=== PATIENT | female | born 1975 | race Caucasian/White ===

== ENCOUNTER 2022-10-27 14:34 | Emergency (ER) | payer OTHER, SELFPAY ==
[2022-10-27 14:39] VITALS: BP 162/93; PULSE 128; RESP 18; TEMP 36.3; O2SAT 98; BMI 32.8
--- NOTE | 2022-10-27 14:43 | ED_ITS ---
HPI - Anxiety General Time Seen by Provider: 14:43 Date Seen: 10/27/22 Chief Complaint: Anxiety Stated Complaint: Anxiety Time Seen by Provider: 10/27/22 14:43 Source: patient, family and RN notes reviewed Mode of arrival: ambulatory Limitations: no limitations History of Present Illness HPI narrative: Lisa is a very pleasant 47-year-old female with a history of anxiety who comes to the emergency room for evaluation regarding her heart racing and feeling like she has ?butterflies all over. She notes that she has had issues with anxiety in the past and states that she worries about everything. She has really had this however since February of 2022. She states that she really has not been feeling that well and has been experiencing a nonproductive cough for a couple of weeks. She notes that this morning she has been and unusually anxious. She notes that she was worried about her driving to work. She did try hydroxyzine tablet at home and stated that it made her feel sleepy but she still feels anxious. She notes associated nausea but no vomiting. She has did eat today although she has a decreased appetite. She denies any diarrhea tobacco or drug use. She has not been using energy drinks or an excessive caffeine. She denies any possibility of , history of DVT or calf pain. She does note in the past she has been on Synthroid for hypothyroidism but has not been taking that for quite some time. She denies any recent trauma or fever. Patient does note headache approximately 72 hours ago that involved entire head with radiation down right neck into right back. Does not remember if it was sudden in onset. This resolved after 1 day and has not returned. It was not associated with visual changes or significant pain. Patient does note that she gets tension headaches and she felt that this was exactly that. Related Data Home Medications Medication Instructions Recorded Confirmed No Known Home Medications 10/27/22 10/27/22 Allergies Allergy/AdvReac Type Severity Reaction Status Date / Time No Known Drug Allergies Allergy Verified 10/27/22 14:45 Review of Systems Status of ROS: Reports: 10 or more systems reviewed and unremarkable except as noted in History and below Narrative: Denies suicidal ideation. Const: Denies: fever or chills ENMT: Denies: throat pain or neck pain Cardio: Reports: other; Denies: chest pain, palpitations, edema, swelling of feet/ankles, lightheadedness or shortness of breath with exertion Resp: Denies: shortness of breath GI: Reports: nausea; Denies: abdominal pain, vomiting or diarrhea : Denies: painful urination or urinary frequency Musculo: Denies: back pain or neck pain Integ/Breast: Denies: rash Neuro: Denies: headache Psych: Reports: anxiety Endo: Denies: excessive urination PFSH PFSH Social History Smoking Status: Never smoker How often do you have a drink containing alcohol: never AUDIT-C Alcohol total score: 0 Non-prescribed substance use: denies use Exam Narrative: Exam Narrative: Patient is alert and oriented. Very pleasant. Does not appear to be significantly anxious. Making good eye contact laughing and interactive with is very loving and supportive. EOM is full. Face is symmetrical. Neck is supple without lymphadenopathy. No midline tenderness. Range of motion full. Heart with a tachycardic rate but normal rhythm. Lungs are clear in all lung ackerman. Abdomen soft nontender. No CVA tenderness with percussion. Lower extremities without edema and negative Homans sign/no calf tenderness. Finger to nose intact Romberg is negative moving all extremities. Const: Vital Signs, click to edit/add: Vital Signs - 24 hr 10/27/22 14:39 10/27/22 16:45 10/27/22 18:55 Temperature 97.4 F L Pulse Rate [Pulse Oximeter] 128 H 120 H 112 H Respiratory Rate 18 16 16 Blood Pressure [Ri ght Upper Arm] 162/93 H 146/91 H 142/90 H Pulse Oximetry 98 100 99 Oxygen Delivery Me thod Room Air Room Air Room Air Documenting provider has reviewed patient's vital signs: yes Course Course Hospital Course: Differential diagnosis includes but is not limited to a broad review of systems. Certainly underlying thyrotoxicosis, thyroid issues, PE, COVID, UTI, infection are all possibilities. Acute coronary syndrome, pericarditis, myocarditis this. Will obtain EKG, troponin, cardiac monitoring, oximetry as well as CBC, comprehensive panel, CRP, D-dimer, TSH, COVID, urinalysis. Chest x-ray pending as well. Reevaluation(s) Reevaluation #1: Patient remains in sinus tachycardia without any chest pain or shortness of breath. She did receive 1 L of normal saline in 0.5 mg of Ativan. Vital Signs Vital signs: Initial Vital Signs Temperature 97.4 F L 10/27/22 14:39 Temperature Source Temporal Artery Scan 10/27/22 14:39 Pulse Rate 128 H 10/27/22 14:39 Respiratory Rate 18 10/27/22 14:39 Blood Pressure 162/93 H 10/27/22 14:39 Blood Pressure Mean 116 10/27/22 14:39 Blood Pressure Position Supine 10/27/22 14:39 Pulse Oximetry 98 10/27/22 14:39 Oxygen Delivery Method 10/27/22 14:39 Vital Signs Temperature 97.4 F L 10/27/22 14:39 Pulse Rate 128 H 10/27/22 14:39 Respiratory Rate 18 10/27/22 14:39 Blood Pressure 162/93 H 10/27/22 14:39 Pulse Oximetry 98 10/27/22 14:39 Oxygen Delivery Method 10/27/22 14:39 Temperature 97.4 F L 10/27/22 14:39 Pulse Rate 112 H 10/27/22 18:55 Respiratory Rate 16 10/27/22 18:55 Blood Pressure 142/90 H 10/27/22 18:55 Pulse Oximetry 99 10/27/22 18:55 Oxygen Delivery Method 10/27/22 18:55 MDM - Anxiety MDM Narrative Medical decision making narrative: 1. Tachycardia-this appears to be sinus on EKG. Troponin is negative x2 and patient has no chest pain or shortness of breath. This time CRP and white count as well as troponin within normal limits and there is no evidence of pericarditis, myocarditis or fluid around the heart. In addition no evidence of acute coronary syndrome or ischemia. Finally D-dimer was negative and chest x- ray was clear. I did see have the pleasure of speaking with Dr. Adames plaster patternmaker who suggest 2 day Holter monitor which we have applied. Patient will then follow up with a physician in our system. She will return to the emergency room for chest pain shortness of breath or worsening symptoms. 2. Vitamin-D deficiency-patient's vitamin-D is 17 and magnesium relatively low at 1.8. Have asked that she start magnesium glycinate tonight at 2 tablets tonight and 1 tablet in the morning. She will start vitamin-D tomorrow. This should greatly improve her anxiety. 3. Anxiety-history of anxiety without suicidal ideation. 4. Disposition-patient will be discharged home in the care of her . She will follow up with primary clinic. However she will return to the ER for worsening symptoms. Lab Data Attestation: I reviewed the patient's lab results. Labs: Lab Results 10/27/22 10/27/22 10/27/22 Range/Units 15:21 15:30 15:45 WBC 8.03 (4.50-11.00) K/uL RBC 4.65 (4.00-5.20) m/uL Hgb 14.4 (12.0-16.0) gm/dL Hct 42.1 (33.0-51.0) % MCV 91 (80-100) fL MCH 31 (26-34) pg MCHC 34 (32-36) gm/dL RDW Coeff of Emma 11.6 (11.5-15.5) % Plt Count 351 (140-440) K/uL Neut % (Auto) 75.9 H (42.0-72.0) % Lymph % (Auto) 16.4 L (20-44) % Marl[place] % (Auto) 5.9 (0.0-11.0) % Eos % (Auto) 1.2 (0.0-7.0) % Baso % (Auto) 0.4 (0.0-3.0) % Neut # (Auto) 6.10 (1.7-7.0) K/uL Lymph # (Auto) 1.30 (0.90-2.90) K/uL [place] # (Auto) 0.50 (0.00-0.90) K/UL Eos # (Auto) 0.10 (0.00-0.50) K/uL Baso # (Auto) 0.03 (0.00-0.30) K/uL D-Dimer Quant (PE/DVT) (0.00-0.50) ug/ml Sodium (135-149) mmol/L Potassium (3.6-5.1) mmol/L Chloride (96-114) mmol/L Carbon Dioxide (20-32) mmol/L BUN (5-24) mg/dL Creatinine (0.5-1.5) mg/dL Estimated Creat Clear Estimated GFR ml/min Glucose (60-115) mg/dL Calcium (8.4-10.6) mg/dL Magnesium (1.5-2.6) mg/dL Total Bilirubin (0.1-1.5) mg/dL AST (12-35) U/L ALT (4-35) U/L Alkaline Phosphatase (40-150) U/L Troponin I (0.01-0.04) ng/mL C-Reactive Protein (0.5-1.0) mg/dL Total Protein (6.0-8.3) g/dL Albumin (3.3-5.0) g/dL Lipase (23-300) U/L 25-OH Vitamin D Total (30-80) ng/mL TSH (0.270-4.20) uIU/mL Urine Color Yellow (Yellow) Urine Appearance Slightly Cloudy A (Clear) Urine pH 6.0 (5.0-8.5) Ur Specific Christmas 1.010 (1.000-1.030) Urine Protein Negative (Negative) Urine Glucose (UA) Negative (Negative) Urine Ketones Negative (Negative) Urine Blood Negative (Negative) Urine Nitrite Negative (Negative) Urine Bilirubin Negative (Negative) Urine Urobilinogen 0.2 (0.2-1.0) Ur Leukocyte Esterase Trace A (Negative) Urine RBC 0-2 (0-2) Urine WBC 0-2 (0-5) Ur Squamous Epith Cells Few (None-Few) Urine Bacteria None (None) SARS-CoV-2 (PCR) Negative SARS-CoV-2 (Negative) Influenza Type A (PCR) Negative PCR FLU A (Negative) Influenza Type B (PCR) Negative PCR FLU B (Negative) POC Troponin I (0.01-0.04) ng/ml 10/27/22 10/27/22 10/27/22 Range/Units 15:45 15:45 15:45 WBC (4.50-11.00) K/uL RBC (4.00-5.20) m/uL Hgb (12.0-16.0) gm/dL Hct (33.0-51.0) % MCV (80-100) fL MCH (26-34) pg MCHC (32-36) gm/dL RDW Coeff of Emma (11.5-15.5) % Plt Count (140-440) K/uL Neut % (Auto) (42.0-72.0) % Lymph % (Auto) (20-44) % Marlboro % (Auto) (0.0-11.0) % Eos % (Auto) (0.0-7.0) % Baso % (Auto) (0.0-3.0) % Neut # (Auto) (1.7-7.0) K/uL Lymph # (Auto) (0.90-2.90) K/uL [place] # (Auto) (0.00-0.90) K/UL Eos # (Auto) (0.00-0.50) K/uL Baso # (Auto) (0.00-0.30) K/uL D-Dimer Quant (PE/DVT) 0.34 (0.00-0.50) ug/ml Sodium 135 (135-149) mmol/L Potassium 3.8 (3.6-5.1) mmol/L Chloride 99 (96-114) mmol/L Carbon Dioxide 26 (20-32) mmol/L BUN 17 (5-24) mg/dL Creatinine 0.6 (0.5-1.5) mg/dL Estimated Creat Clear 93.82 Estimated GFR 110 ml/min Glucose 114 (60-115) mg/dL Calcium 9.3 (8.4-10.6) mg/dL Magnesium 1.8 (1.5-2.6) mg/dL Total Bilirubin 0.7 (0.1-1.5) mg/dL AST 39 H (12-35) U/L ALT 36 H (4-35) U/L Alkaline Phosphatase 108 (40-150) U/L Troponin I < 0.01 L (0.01-0.04) ng/mL C-Reactive Protein < 0.5 L (0.5-1.0) mg/dL Total Protein 8.5 H (6.0-8.3) g/dL Albumin 5.0 (3.3-5.0) g/dL Lipase 82 (23-300) U/L 25-OH Vitamin D Total (30-80) ng/mL TSH (0.270-4.20) uIU/mL Urine Color (Yellow) Urine Appearance (Clear) Urine pH (5.0-8.5) Ur Specific Christmas (1.000-1.030) Urine Protein (Negative) Urine Glucose (UA) (Negative) Urine Ketones (Negative) Urine Blood (Negative) Urine Nitrite (Negative) Urine Bilirubin (Negative) Urine Urobilinogen (0.2-1.0) Ur Leukocyte Esterase (Negative) Urine RBC (0-2) Urine WBC (0-5) Ur Squamous Epith Cells (None-Few) Urine Bacteria (None) SARS-CoV-2 (PCR) (Negative) Influenza Type A (PCR) (Negative) Influenza Type B (PCR) (Negative) POC Troponin I (0.01-0.04) ng/ml 10/27/22 10/27/22 Range/Units 15:45 18:10 WBC (4.50-11.00) K/uL RBC (4.00-5.20) m/uL Hgb (12.0-16.0) gm/dL Hct (33.0-51.0) % MCV (80-100) fL MCH (26-34) pg MCHC (32-36) gm/dL RDW Coeff of Emma (11.5-15.5) % Plt Count (140-440) K/uL Neut % (Auto) (42.0-72.0) % Lymph % (Auto) (20-44) % Marl[place] % (Auto) (0.0-11.0) % Eos % (Auto) (0.0-7.0) % Baso % (Auto) (0.0-3.0) % Neut # (Auto) (1.7-7.0) K/uL Lymph # (Auto) (0.90-2.90) K/uL [place] # (Auto) (0.00-0.90) K/UL Eos # (Auto) (0.00-0.50) K/uL Baso # (Auto) (0.00-0.30) K/uL D-Dimer Quant (PE/DVT) (0.00-0.50) ug/ml Sodium (135-149) mmol/L Potassium (3.6-5.1) mmol/L Chloride (96-114) mmol/L Carbon Dioxide (20-32) mmol/L BUN (5-24) mg/dL Creatinine (0.5-1.5) mg/dL Estimated Creat Clear Estimated GFR ml/min Glucose (60-115) mg/dL Calcium (8.4-10.6) mg/dL Magnesium (1.5-2.6) mg/dL Total Bilirubin (0.1-1.5) mg/dL AST (12-35) U/L ALT (4-35) U/L Alkaline Phosphatase (40-150) U/L Troponin I (0.01-0.04) ng/mL C-Reactive Protein (0.5-1.0) mg/dL Total Protein (6.0-8.3) g/dL Albumin (3.3-5.0) g/dL Lipase (23-300) U/L 25-OH Vitamin D Total 17 L (30-80) ng/mL TSH 9.500 H (0.270-4.20) uIU/mL Urine Color (Yellow) Urine Appearance (Clear) Urine pH (5.0-8.5) Ur Specific Christmas (1.000-1.030) Urine Protein (Negative) Urine Glucose (UA) (Negative) Urine Ketones (Negative) Urine Blood (Negative) Urine Nitrite (Negative) Urine Bilirubin (Negative) Urine Urobilinogen (0.2-1.0) Ur Leukocyte Esterase (Negative) Urine RBC (0-2) Urine WBC (0-5) Ur Squamous Epith Cells (None-Few) Urine Bacteria (None) SARS-CoV-2 (PCR) (Negative) Influenza Type A (PCR) (Negative) Influenza Type B (PCR) (Negative) POC Troponin I 0.00 L (0.01-0.04) ng/ml Imaging Data Chest x-ray: My impression: No evidence of infiltrates. Radiologist's impression: Negative chest/unremarkable per Radiology ECG Data Attestation: I personally reviewed and interpreted this ECG as follows: ECG interpretation date: 10/27/22 Interpretation: 1. EKG 1. By my read shows sinus tachycardia at a rate of 119. No acute ST or T-wave changes are noted. QT within normal limits Second EKG by my read shows sinus tachycardia rate of 114. No acute ST or T- wave changes noted. Discharge Plan Discharge Clinical Impression: Tachycardia, Acute anxiety, Vitamin D deficiency Patient Disposition: Home, Self-Care Condition: Unchanged Additional Instructions: Recommend 2 day monitor because of elevated heart rate. Follow-up with your primary MD for results. I will not be able to give you these results so you must follow-up with your primary clinic. I recommend starting vitamin-D 400-800 IU daily after starting magnesium. Start magnesium glycinate 2 tablets at night and 1 tablet in morning. Recheck vitamin-D level in the next few months with your primary clinic. Seek medical attention or return to the emergency room for worsening symptoms. Follow-up with on our clinic system. Dr. Sandoval is a physician in [place] [facility]. His phone number is [phone]. Alternatively the [facility] has Dr. Witt or Dr Donis. Phone number [phone] Return to the emergency room for worsening symptoms, pain, fever and as needed. Prescriptions: No Action No Known Home Medications Follow Up/Referrals: Provider,Not a Local [Primary Care Provider] - Stand Alone Forms: [employer] Info Instructions
--- NOTE | 2022-10-27 15:21 | CRLHL7_ITS ---
For Patients: As a result of the Century Cures Act, medical imaging exams and procedure reports are released immediately into your electronic medical record. You may view this report before your referring provider. If you have questions, please contact your health care provider. INDICATION: Cough and tachycardia TECHNIQUE: Chest 1 view. COMPARISON: None. FINDINGS: Cardiovascular and mediastinum: Heart size and vasculature are normal in caliber and appearance. Mediastinum is within normal limits. Lungs and pleural space: Lungs are clear. No sign of infiltrate or mass. No sign of pleural effusion. No pneumothorax. Bones and soft tissues: No significant findings. IMPRESSION: Unremarkable chest. Dictated by: Ammon Kessler MD @ 10/27/2022 16:02:55 (Electronically Signed)
[2022-10-27 15:44] LABS: Appearance Urine Slightly Cloudy (Clear); Bilirubin Urine Negative (Negative); Blood Urine Negative (Negative); Color Urine Yellow (Yellow); Glucose Urine Negative (Negative); Ketones Urine Negative (Negative); Leukocyte Esterase Urine Trace (Negative); Nitrite Urine Negative (Negative); Protein Urine Negative (Negative); Urobilinogen Urine 0.2 (0.2-1.0)
[2022-10-27 15:54] LABS: Basophils Absolute Auto 0.03 K/uL (0.00-0.30); Basophils Percent Auto 0.4 % (0.0-3.0); Eosinophils Percent Auto 1.2 % (0.0-7.0); Hematocrit 42.1 % (33.0-51.0); Hemoglobin* 14.4 gm/dL (12.0-16.0); Immature Granulocytes Abs Auto 0.02 K/uL (0.00-0.30); Immature Granulocytes Pct Auto 0.2 %; Lymphocytes Percent Auto 16.4 % (20-44); Mean Corpuscular HGB Conc 34 gm/dL (32-36); Mean Corpuscular Hemoglobin 31 pg (26-34); Mean Corpuscular Volume 91 fL (80-100); Monocytes Percent Auto 5.9 % (0.0-11.0); Neutrophils Percent Auto 75.9 % (42.0-72.0); Platelet Count* 351 K/uL (140-440); RDW Coefficient of Variation % 11.6 % (11.5-15.5); Red Blood Count 4.65 m/uL (4.00-5.20); White Blood Count* 8.03 K/uL (4.50-11.00)
[2022-10-27 15:56] LABS: Slide Review Reflex No
[2022-10-27 16:12] LABS: RBC Urine 0-2 (0-2); Squamous Epithelial Cell Urine Few (None-Few); WBC Urine 0-2 (0-5)
[2022-10-27 16:15] LABS: Chloride* 99 mmol/L (96-114); Sodium* 135 mmol/L (135-149)
[2022-10-27 16:16] LABS: Potassium* 3.8 mmol/L (3.6-5.1)
[2022-10-27 16:17] LABS: Creatinine* 0.6 mg/dL (0.5-1.5); Est. Creatinine Clearance* 93.82; Estimated Glomerular Filt Rate 110 ml/min
[2022-10-27 16:18] LABS: Alanine Aminotransferase* 36 U/L (4-35); Alkaline Phosphatase* 108 U/L (40-150); Aspartate Amino Transferase* 39 U/L (12-35); Bilirubin Total* 0.7 mg/dL (0.1-1.5); Blood Urea Nitrogen* 17 mg/dL (5-24); Carbon Dioxide* 26 mmol/L (20-32); Glucose* 114 mg/dL (60-115); Lipase* 82 U/L (23-300); Total Protein* 8.5 g/dL (6.0-8.3)
[2022-10-27 16:19] LABS: Calcium* 9.3 mg/dL (8.4-10.6)
[2022-10-27 16:22] LABS: C Reactive Protein* < 0.5 mg/dL (0.5-1.0)
[2022-10-27 16:30] LABS: Troponin I* < 0.01 ng/mL (0.01-0.04)
[2022-10-27 16:39] LABS: Magnesium* 1.8 mg/dL (1.5-2.6)
[2022-10-27 16:40] LABS: PCR FLU A Negative PCR FLU A (Negative); PCR FLU B Negative PCR FLU B (Negative)
[2022-10-27 16:42] LABS: SARS PCR* Negative SARS-CoV-2 (Negative)
[2022-10-27 16:45] VITALS: BP 146/91; PULSE 120; RESP 16; O2SAT 100
[2022-10-27 16:50] LABS: D Dimer Quantitative* 0.34 ug/ml (0.00-0.50)
[2022-10-27] MEDS: 0.9 % SODIUM CHLORIDE 1000 ml 1,000 ML IV (17:20)
[2022-10-27] MEDS: LORazepam 2 MG/ML inj 0.5 MG IVP (17:24)
[2022-10-27 17:28] LABS: Vitamin D 25 Hydroxy* 17 ng/mL (30-80)
--- NOTE | 2022-10-27 18:22 | ED.NURSE ---
pt states, feels 100% better
--- NOTE | 2022-10-27 18:53 | ED.NURSE ---
SL dc'd intact. radiology placing holter monitor
[2022-10-27 18:55] VITALS: BP 142/90; PULSE 112; RESP 16; O2SAT 99
--- NOTE | 2022-10-27 19:00 | ED.NURSE ---
dr. loo doing us at bedside.
== END 2022-10-27 19:52 | disposition home or self-care (01) ==
PROVIDERS: Emergency Provider Family Medicine
DX: R00.0 Tachycardia, unspecified (principal); E55.9 Vitamin D deficiency, unspecified; F41.9 Anxiety disorder, unspecified
CPT/HCPCS: 36415; 71045; 80053; 81001; 82306; 83690; 83735; 84443; 84484; 85025; 85379; 86140; 87631; 93005; 93225; 93226; 96374; 99283; 99284; 99285; J2060; J7030

== ENCOUNTER 2022-10-29 11:16 | Emergency (ER) | payer OTHER, SELFPAY ==
[2022-10-29 11:25] VITALS: BP 178/107; PULSE 113; RESP 18; TEMP 37.3; O2SAT 99; BMI 32.8
--- NOTE | 2022-10-29 11:49 | ED.GENADULT ---
HPI - General Adult General Chief complaint: Arrhythmia/Palpitations Stated complaint: Possible anxiety, elevated heartrate Time Seen by Provider: 10/29/22 11:27 History of Present Illness HPI narrative: Pt is a 47 year old woman who had a thorough work up several days ago here in the ED who presents stating that she cant take the anxiety anymore and needs help. Pts previous workup was unremarkable with the exception of a low Vitamin D and an elevated TSH. Pt was started on vitamin d and asked to follow up with primary care. Pt also is nearing the completion of a 48 dean holter monitor. Pt overall has felt reasonably well during the time since she was last seen but this morning awoke with the impending sense of doom. Pt presents to the ED with extreme tearfulness and anxiety. No fevers, chills, chest pain or shortness of breath. Pt is mildly tachycardic which improves over the time of assessment. No other new symptoms. Related Data Previous Rx's Medication Instructions Recorded levothyroxine 25 mcg tablet 25 mcg PO DAILY Hypothyroidism #90 10/29/22 (Synthroid) tabs Allergies Allergy/AdvReac Type Severity Reaction Status Date / Time No Known Drug Allergies Allergy Verified 10/27/22 14:45 Review of Systems Status of ROS: Reports: 10 or more systems reviewed and unremarkable except as noted in History and below [facility] Medical History (Updated 10/29/22 @ 12:02 by Gerald Witt MD) Hypothyroidism Social History Smoking Status: Never smoker How often do you have a drink containing alcohol: never AUDIT-C Alcohol total score: 0 Non-prescribed substance use: denies use Exam Narrative: Exam Narrative: EXAM GENERAL: Patient appears comfortable and well. EYES: No scleral icterus. THYROID: no thyroid nodules or thyromegaly. LYMPH: No supraclavicular or cervical lymphadenopathy. SKIN: Visible skin seen during exam normal or with benign process only. EXT: No dependent lower extremity pedal edema. HEART: Regular rate and rhythm with no murmurs, rubs, or gallops. Mildly tachycardic. LUNGS: Clear to auscultation bilaterally with no crackles or wheezes. ABD: Soft, non tender, non distended. PSYCH: Good eye contact, speech is not pressured. Const: Vital Signs, click to edit/add: Vital Signs - 24 hr 10/29/22 11:25 Temperature 99.2 F Pulse Rate [Right Pulse Oximeter] 113 H Respiratory Rate 18 Blood Pressure [Ri ght Upper Arm] 178/107 H Pulse Oximetry 99 Oxygen Delivery Me thod Room Air Course Course Hospital Course: Previous evaluation reviewed. Pt seen and examined. Vital Signs Vital signs: Initial Vital Signs Temperature 99.2 F 10/29/22 11:25 Temperature Source Temporal Artery Scan 10/29/22 11:25 Pulse Rate 113 H 10/29/22 11:25 Respiratory Rate 18 10/29/22 11:25 Blood Pressure 178/107 H 10/29/22 11:25 Blood Pressure Mean 130 10/29/22 11:25 Blood Pressure Position Sitting 10/29/22 11:25 Pulse Oximetry 99 10/29/22 11:25 Oxygen Delivery Method 10/29/22 11:25 Vital Signs Temperature 99.2 F 10/29/22 11:25 Pulse Rate 113 H 10/29/22 11:25 Respiratory Rate 18 10/29/22 11:25 Blood Pressure 178/107 H 10/29/22 11:25 Pulse Oximetry 99 10/29/22 11:25 Oxygen Delivery Method 10/29/22 11:25 Temperature 99.2 F 10/29/22 11:25 Pulse Rate 113 H 10/29/22 11:25 Respiratory Rate 18 10/29/22 11:25 Blood Pressure 178/107 H 10/29/22 11:25 Pulse Oximetry 99 10/29/22 11:25 Oxygen Delivery Method 10/29/22 11:25 Medical Decision Making [facility] Narrative Medical decision making narrative: Pt with a thorough evaluation several days ago presents with worsening anxiety and an impending sense of doom. Pt was placed on Vitamin D. Pt does not have a primary provider. Pt will be started on Synthroid at 25 micrograms daily as well as a very limited amount of ativan to be used prn. She will then follow up with me next week in my clinic. Differential Diagnosis Differential Diagnosis: Palpitations, Anxiety, Tachycardia, Hypothyroidism, Vitamind D deficiency, Discharge Plan Discharge Clinical Impression: Palpitations Patient Disposition: Home, Self-Care Condition: Stable Instructions: Heart Palpitations (ED) Additional Instructions: Ativan as directed Synthroid as directed Follow with [facility] next week. Continue Magnesium and Vitamin D Activity Level: No Restrictions Discharge Diet: Regular Prescriptions: New levothyroxine [Synthroid] 25 mcg tablet 25 mcg PO DAILY Qty: 90 2RF Follow Up/Referrals: Provider,Not a Local [Primary Care Provider] - Stand Alone Forms: [employer] Info Instructions
[2022-10-29 12:02] VITALS: BP 150/96; PULSE 88; RESP 16; O2SAT 97
--- NOTE | 2022-10-29 12:13 | PC.NURSE ---
Patient was discharged from ER. Phone number for Dr. Witt's clinic given to patient to call and make an appointment for next week. Prescriptions for Ativan and Synthroid provided to patient. All questions answered. Left via ambulatory.
== END 2022-10-29 12:14 | disposition home or self-care (01) ==
PROVIDERS: Emergency Provider Internal Medicine
DX: R00.2 Palpitations (principal)
CPT/HCPCS: 99283

== ENCOUNTER 2023-01-29 23:23 | Emergency (ER) | payer OTHER, SELFPAY ==
[2023-01-29 23:29] VITALS: BP 164/101; PULSE 119; RESP 16; TEMP 36.7; O2SAT 98; BMI 35.4
--- NOTE | 2023-01-29 23:42 | CRLHL7_ITS ---
For Patients: As a result of the Cures Act, medical imaging exams and procedure reports are released immediately into your electronic medical record. You may view this report before your referring provider. If you have questions, please contact your health care provider. INDICATION: Shortness of breath. CHEST, ONE VIEW An AP radiograph of the chest was performed. Comparison: 10/27/2022. The lungs appear clear and no pleural effusions are identified. The cardiomediastinal silhouette and pulmonary vasculature appear normal, as do the visualized bones. IMPRESSION: No acute intrathoracic abnormality identified. DAVID CHAWLA MD [employer] Dictated by: Logan Chawla MD @ 01/30/2023 00:39:38 (Electronically Signed)
--- NOTE | 2023-01-29 23:47 | ED_ITS ---
HPI - SOB/Dyspnea General Chief Complaint: Shortness of Breath/Dyspnea Stated Complaint: Shortness of Breath Time Seen by Provider: 01/29/23 23:27 History of Present Illness HPI Narrative: Patient is a 47-year-old woman who presents several hours after arriving back from a trip to [place] with shortness of breath. Patient states that she feels like he is having hard time getting her oxygen level up although she is 98% on room air. She has no chest pain no orthopnea no PND. Shortness of breath is worse with activity. Patient has no underlying history of asthma. She has had no symptoms of a respiratory infection. No nausea no vomiting no weakness no bleeding. She has had no bruising no headaches no change in her vision or hearing. She has no lower extremity swelling. Related Data Previous Rx's Medication Instructions Recorded levothyroxine 25 mcg tablet 25 mcg PO DAILY #90 tabs 12/17/22 (Synthroid) Allergies Allergy/AdvReac Type Severity Reaction Status Date / Time No Known Drug Allergies Allergy Verified 11/03/22 15:39 Review of Systems Status of ROS: Reports: 10 or more systems reviewed and unremarkable except as noted in History and below [facility] Medical History Hypothyroidism ?E03.9 - Hypothyroidism, unspecified (ICD-10) Social History Smoking Status: Never smoker Second hand tobacco smoke exposure: No How often do you have a drink containing alcohol: never How often do you have six or more drinks on one occasion: Never AUDIT-C Alcohol total score: 0 Non-prescribed substance use: denies use Exam Narrative: Exam Narrative: EXAM GENERAL: Patient appears comfortable and well. EYES: No scleral icterus. THYROID: no thyroid nodules or thyromegaly. LYMPH: No supraclavicular or cervical lymphadenopathy. SKIN: Visible skin seen during exam normal or with benign process only. EXT: No dependent lower extremity pedal edema. HEART: Regular rate and rhythm with no murmurs, rubs, or gallops. LUNGS: Clear to auscultation bilaterally with no crackles or wheezes. ABD: Soft, non tender, non distended. PSYCH: Good eye contact, speech is not pressured. Const: Vital Signs, click to edit/add: Vital Signs - 24 hr 01/29/23 23:29 01/30/23 00:43 Temperature 98.1 F Pulse Rate [Pulse Oximeter] 119 H 111 H Respiratory Rate 16 16 Blood Pressure [Le ft Upper Arm] 164/101 H Pulse Oximetry 98 97 Oxygen Delivery Me thod Room Air Room Air Course Course Hospital Course: Patient seen examined D-dimer troponin EKG chest x-ray CBC basic metabolic panel ordered. Vital Signs Vital signs: Initial Vital Signs Temperature 98.1 F 01/29/23 23:29 Temperature Source Temporal Artery Scan 01/29/23 23:29 Pulse Rate 119 H 01/29/23 23:29 Pulse Rhythm Regular 01/29/23 23:29 Respiratory Rate 16 01/29/23 23:29 Blood Pressure 164/101 H 01/29/23 23:29 Blood Pressure Mean 122 01/29/23 23:29 Pulse Oximetry 98 01/29/23 23:29 Oxygen Delivery Method Room Air 01/29/23 23:29 Vital Signs Temperature 98.1 F 01/29/23 23:29 Pulse Rate 119 H 01/29/23 23:29 Respiratory Rate 16 01/29/23 23:29 Blood Pressure 164/101 H 01/29/23 23:29 Pulse Oximetry 98 01/29/23 23:29 Oxygen Delivery Method Room Air 01/29/23 23:29 Temperature 98.1 F 01/29/23 23:29 Pulse Rate 111 H 01/30/23 00:43 Respiratory Rate 16 01/30/23 00:43 Blood Pressure 164/101 H 01/29/23 23:29 Pulse Oximetry 97 01/30/23 00:43 Oxygen Delivery Method Room Air 01/30/23 00:43 MDM - SOB/Dyspnea MDM Narrative Medical decision making narrative: Patient's workup is unremarkable with a negative D-dimer negative chest x-ray negative troponin EKG shows sinus tachycardia likely due to anxiety. CBC basic metabolic panel normal. Vital signs normal other than mild tachycardia and hypertension. Reassurance is offered oxygen saturation is 98% on room air p atient sees me in the clinic will follow-up with me on a p.r.n. basis. Differential Diagnosis Differential diagnosis: Likely acute exacerbation of chronic obstructive airways disease, congestive heart failure, community acquired pneumonia, asthma with exacerbation and pulmonary embolism Lab Data Labs: Lab Results 01/29/23 Range/Units 23:59 WBC 7.74 (4.50-11.00) K/uL RBC 4.12 (4.00-5.20) m/uL Hgb 12.9 (12.0-16.0) gm/dL Hct 37.8 (33.0-51.0) % MCV 92 (80-100) fL MCH 31 (26-34) pg MCHC 34 (32-36) gm/dL RDW Coeff of Emma 11.8 (11.5-15.5) % Plt Count 275 (140-440) K/uL Neut % (Auto) 71.1 (42.0-72.0) % Lymph % (Auto) 18.5 L (20-44) % [place] % (Auto) 5.8 (0.0-11.0) % Eos % (Auto) 3.7 (0.0-7.0) % Baso % (Auto) 0.3 (0.0-3.0) % Neut # (Auto) 5.50 (1.7-7.0) K/uL Lymph # (Auto) 1.40 (0.90-2.90) K/uL [place] # (Auto) 0.40 (0.00-0.90) K/UL Eos # (Auto) 0.29 (0.00-0.50) K/uL Baso # (Auto) 0.02 (0.00-0.30) K/uL D-Dimer Quant (PE/DVT) 0.36 (0.00-0.50) ug/ml Sodium 136 (135-149) mmol/L Potassium 4.2 (3.6-5.1) mmol/L Chloride 102 (96-114) mmol/L Carbon Dioxide 29 (20-32) mmol/L BUN 13 (5-24) mg/dL Creatinine 0.6 (0.5-1.5) mg/dL Estimated Creat Clear 93.82 Estimated GFR 110 ml/min Glucose 114 (60-115) mg/dL Calcium 9.6 (8.4-10.6) mg/dL Troponin I < 0.01 L (0.01-0.04) ng/mL Discharge Plan Discharge Clinical Impression: Shortness of breath Patient Disposition: Home, Self-Care Condition: Stable Instructions: Shortness of Breath (ED) Additional Instructions: Activity as tolerated Follow-up in the office as needed. Monitor for change in symptoms. Activity Level: No Restrictions Discharge Diet: Regular Prescriptions: No Action levothyroxine [Synthroid] 25 mcg tablet 25 mcg PO DAILY Qty: 90 2RF Follow Up/Referrals: Provider,Not a Local [Referring] - Stand Alone Forms: [employer] Info Instructions
[2023-01-30 00:12] LABS: Basophils Absolute Auto 0.02 K/uL (0.00-0.30); Basophils Percent Auto 0.3 % (0.0-3.0); Eosinophils Absolute Auto 0.29 K/uL (0.00-0.50); Eosinophils Percent Auto 3.7 % (0.0-7.0); Hematocrit 37.8 % (33.0-51.0); Hemoglobin* 12.9 gm/dL (12.0-16.0); Immature Granulocytes Abs Auto 0.05 K/uL (0.00-0.30); Immature Granulocytes Pct Auto 0.6 %; Lymphocytes Percent Auto 18.5 % (20-44); Mean Corpuscular HGB Conc 34 gm/dL (32-36); Mean Corpuscular Hemoglobin 31 pg (26-34); Mean Corpuscular Volume 92 fL (80-100); Monocytes Percent Auto 5.8 % (0.0-11.0); Neutrophils Percent Auto 71.1 % (42.0-72.0); Platelet Count* 275 K/uL (140-440); RDW Coefficient of Variation % 11.8 % (11.5-15.5); Red Blood Count 4.12 m/uL (4.00-5.20); White Blood Count* 7.74 K/uL (4.50-11.00)
[2023-01-30 00:14] LABS: Slide Review Reflex No
[2023-01-30 00:20] LABS: Chloride* 102 mmol/L (96-114); Potassium* 4.2 mmol/L (3.6-5.1); Sodium* 136 mmol/L (135-149)
[2023-01-30 00:23] LABS: Blood Urea Nitrogen* 13 mg/dL (5-24); Carbon Dioxide* 29 mmol/L (20-32); Creatinine* 0.6 mg/dL (0.5-1.5); Est. Creatinine Clearance* 93.82; Estimated Glomerular Filt Rate 110 ml/min; Glucose* 114 mg/dL (60-115)
[2023-01-30 00:24] LABS: Calcium* 9.6 mg/dL (8.4-10.6)
[2023-01-30 00:26] LABS: D Dimer Quantitative* 0.36 ug/ml (0.00-0.50)
[2023-01-30 00:37] LABS: Troponin I* < 0.01 ng/mL (0.01-0.04)
[2023-01-30 00:43] VITALS: PULSE 111; RESP 16; O2SAT 97
[2023-01-30 01:11] VITALS: BP 168/99; PULSE 109; RESP 16
== END 2023-01-30 01:12 | disposition home or self-care (01) ==
PROVIDERS: Emergency Provider Internal Medicine; PCP Internal Medicine
DX: R06.02 Shortness of breath (principal)
CPT/HCPCS: 36415; 71045; 80048; 84484; 85025; 85379; 93005; 99283; 99284

== ENCOUNTER 2023-04-05 13:27 | Outpatient (CLI) | payer OTHER, SELFPAY | END 2023-04-05 13:28 | disposition home or self-care (01) | LOC: NFLDREF 04-07 06:30 | PROVIDERS: PCP Internal Medicine; Referring Provider Internal Medicine; Visit Provider Internal Medicine | DX: E03.9 Hypothyroidism, unspecified (principal); Z13.6 Encounter for screening for cardiovascular disorders | CPT/HCPCS: 80053; 80061; 84439; 84443 ==

== ENCOUNTER 2023-08-11 08:10 | Outpatient (CLI) | payer OTHER, SELFPAY | END 2023-08-11 08:11 | disposition home or self-care (01) | LOC: NFLDREF 08:10 | PROVIDERS: PCP Internal Medicine; Visit Provider Internal Medicine | DX: E03.9 Hypothyroidism, unspecified (principal) | CPT/HCPCS: 84439; 84443 ==

== ENCOUNTER 2023-10-17 14:18 | Emergency (ER) | payer OTHER, SELFPAY ==
[2023-10-17] VITALS (7 sets, daily range): BP systolic 137–167; BP diastolic 87–112; PULSE 110–121; RESP 16; TEMP 36.8; O2SAT 94–99; BMI 38.1
--- NOTE | 2023-10-17 14:54 | CRLHL7_ITS ---
For Patients: As a result of the Century Cures Act, medical imaging exams and procedure reports are released immediately into your electronic medical record. You may view this report before your referring provider. If you have questions, please contact your health care provider. INDICATION: Shortness of breath. TECHNIQUE: Portable AP chest. COMPARISON: 01/30/2023. FINDINGS: Lungs are clear. Normal heart size and pulmonary vascularity. No pleural effusion. No pneumothorax. IMPRESSION: Normal chest. Dictated by Ja Gallagher MD @ 10/17/2023 3:53:39 PM (Electronically Signed)
--- NOTE | 2023-10-17 14:54 | ED_ITS ---
HPI - General Adult General Time Seen by Provider: 14:54 Date Seen: 10/17/23 Chief complaint: Shortness of Breath/Dyspnea Stated complaint: Heartburn, short of breath Time Seen by Provider: 10/17/23 14:31 Source: patient, RN notes reviewed and old records reviewed Mode of arrival: ambulatory Limitations: no limitations History of Present Illness HPI narrative: Patient is a very pleasant 48-year-old female with history of hypothyroidism who comes to the emergency room with complaints of heartburn. Patient notes the onset at approximately 0900 hours of discomfort or burning in her chest. She notes that she did have some burping which seemed to help a little bit. She states that she went on [employer] and after that basically had a panic attack because it scared her. Patient states she is otherwise a healthy individual and denies any other medical problems. She does not smoke. She notes no excessive use of caffeine or any stimulants. She notes that she has had cholesterol tests in the past and she does not know what the results were but she thinks that they were normal. She is not currently on any antihypertensives or cholesterol medications. She does note that since June she has had cold-like symptoms. She finished an antibiotic approximately 10 days ago for an ear infection. She has never had blood clots in her lungs she has been active and she denies any calf tenderness or swelling. In regards to her discomfort she states I think this is indigestion. She did not try any Tums at home. She does think that yogurt helped when she was eating. Patient states that her father had an [place] but was in [place] and exposed to Agent [place]. Her mother in 2015 of a triple a. She was never told to follow up for an ultrasound or any other evaluation after her mom's diagnosis. Patient denies shortness of breath. Denies abdominal pain. She has no gallbladder. Denies fever or chills. Related Data Previous Rx's Medication Instructions Recorded levothyroxine 25 mcg tablet 25 mcg PO DAILY #90 tabs 12/17/22 (Synthroid) levothyroxine 50 mcg tablet 50 mcg PO QDAY Hypothyroidism #90 04/13/23 (Synthroid) tabs Allergies Allergy/AdvReac Type Severity Reaction Status Date / Time peanut AdvReac Intermediate hives Uncoded 04/13/23 14:19 Review of Systems Status of ROS: Reports: 10 or more systems reviewed and unremarkable except as noted in History and below Const: Denies: fever or chills Eyes: Denies: change in vision ENMT: Denies: throat pain, neck pain, throat swelling, difficulty swallowing, hoarseness or nasal congestion Cardio: Reports: chest pain (Describes a burning); Denies: palpitations, edema, swelling of feet/ankles, lightheadedness or shortness of breath with exertion Resp: Denies: shortness of breath, cough or wheezing GI: Denies: abdominal pain, nausea, vomiting, diarrhea or difficulty swallowing : Denies: painful urination or urinary frequency Musculo: Denies: neck pain Integ/Breast: Denies: rash Neuro: Denies: headache, numbness in extremities or weakness in extremities Psych: Reports: anxiety and panic attacks Allergy/Immuno: Denies: throat swelling or wheezing PFSH REPLACED BY [facility] Medical History Hypothyroidism ?E03.9 - Hypothyroidism, unspecified (ICD-10) Social History Smoking Status: Never smoker Second hand tobacco smoke exposure: No How often do you have a drink containing alcohol: never How often do you have six or more drinks on one occasion: Never AUDIT-C Alcohol total score: 0 Non-prescribed substance use: denies use Little interest or pleasure in doing things: not at all Feeling down, depressed, or hopeless: not at all Exam Narrative: Exam Narrative: Patient is alert and oriented. Somewhat anxious. Very pleasant. External ears eyes nose clear. Heart with a tachycardic rate consistently in the 120s. Lungs are clear bilaterally. Abdomen is soft nontender. No pulsating mass. Lower extremities without edema. No calf tenderness negative Homans sign. Const: Vital Signs, click to edit/add: Vital Signs - 24 hr 10/17/23 14:22 Temperature 98.3 F Pulse Rate [Right Pulse Oximeter] 121 H Respiratory Rate 16 Blood Pressure [Ri ght Upper Arm] 154/112 H Pulse Oximetry 99 Oxygen Delivery Me thod Room Air Documenting provider has reviewed patient's vital signs: yes Course Course ED Course: Differential diagnosis includes stimulant use, SVT, atrial fibrillation or other arrhythmia, hyperthyroidism, low magnesium/electrolyte abnormality. Patient denies any excess take of her levothyroxine which is 50 mcg daily according to patient. Will place IV. Will check CBC, comprehensive panel, troponin, magnesium, EKG and D-dimer. Chest x-ray at this time. Reevaluation(s) Reevaluation #1: Chest x-ray is reassuring as are all of her laboratory values. A trial of Lopressor 2.5 mg slow heart rate down to 107 but heart rate is now spit up once again. Unfortunately at age 48 we cannot rule out possibility of underlying PE. Patient does note Benadryl use in the evenings but this is not been excessive. She has not taken any cough medications, excess caffeine nor any extra doses of her Synthroid. At this time I have spoken to her about the CT for PE rule out and that is currently pending. Reevaluation #2: Patient notes that she is feeling improved. Blood pressures improved to 1 30s over 90s. She notes that she has been under significant stress as her has been just diagnosed with a positive stress test and he is due to follow-up with Cardiology. TSH is slightly elevated. Vital Signs Vital signs: Initial Vital Signs Temperature 98.3 F 10/17/23 14:22 Temperature Source Temporal Artery Scan 10/17/23 14:22 Pulse Rate 121 H 10/17/23 14:22 Pulse Rhythm Regular 10/17/23 14:22 Respiratory Rate 16 10/17/23 14:22 Blood Pressure 154/112 H 10/17/23 14:22 Blood Pressure Mean 126 H 10/17/23 14:22 Blood Pressure Position Sitting 10/17/23 14:22 Pulse Oximetry 99 10/17/23 14:22 Oxygen Delivery Method Room Air 10/17/23 14:22 Vital Signs Temperature 98.3 F 10/17/23 14:22 Pulse Rate 121 H 10/17/23 14:22 Respiratory Rate 16 10/17/23 14:22 Blood Pressure 154/112 H 10/17/23 14:22 Pulse Oximetry 99 10/17/23 14:22 Oxygen Delivery Method Room Air 10/17/23 14:22 Temperature 98.3 F 10/17/23 14:22 Pulse Rate 121 H 10/17/23 14:22 Respiratory Rate 16 10/17/23 14:22 Blood Pressure 154/112 H 10/17/23 14:22 Pulse Oximetry 99 10/17/23 14:22 Oxygen Delivery Method Room Air 10/17/23 14:22 Medications Administered Medications: Discontinued Medications Generic Name Dose Route Start Last Admin Trade Name Thao PRN Reason Stop Dose Admin Adenosine 6 mg 10/17/23 15:57 10/17/23 18:02 Adenosine 6 Mg/2ml Inj IVP 10/17/23 15:58 Not Given ONCE ONE Calcium Carbonate 500 mg 10/17/23 14:54 10/17/23 15:34 Calcium Carbonate 500 Mg Chew PO 10/17/23 14:55 500 mg ONCE ONE Administration Sodium Chloride 1,000 mls @ 1,000 mls/hr 10/17/23 15:48 10/17/23 16:14 0.9 % Sodium Chloride 1000 Ml IV 10/17/23 16:47 1,000 mls/hr .Q1H ANIYA Administration Metoprolol Tartrate 5 mg 10/17/23 16:05 10/17/23 16:14 Metoprolol Tartrate 1 Mg/Ml Inj IVP 10/17/23 16:06 2.5 mg ONCE ONE Administration Metoprolol Tartrate 5 mg 10/17/23 16:57 10/17/23 18:02 Metoprolol Tartrate 1 Mg/Ml Inj IVP 10/17/23 16:58 Not Given ONCE ONE Omeprazole 20 mg 10/17/23 14:54 10/17/23 15:34 Omeprazole [address] PO 10/17/23 14:55 20 mg ONCE ONE Administration Medical Decision Making MDM Narrative Medical decision making narrative: 1. Sinus tachycardia-at this time there is no evidence of underlying acute coronary disease, pericarditis, myocarditis, hyperthyroidism, excessive stimulant use, viral illness or dehydration. I had the pleasure of speaking to [facility] this evening. At this time they do suggest echocardiogram, prolonged cardiac monitoring with Holter or alternative, as well as cardiac consult. At this time they advised against metoprolol or other medication. I did talk to a me in regards to this and she will be going home as long as the 2nd troponin is negative. 2. Disposition -home at this time. Lisa spoke to me about her increased stressors and that she cannot stop thinking about her 's potential health issues. She does have Ativan and hydroxyzine at home. She may use Ativan 0.5 mg 1-2 tablets every 8 hours as needed. I have also talked to her about breathing exercises. She tells me that she actually is feeling much better and is much more relaxed. I have not been able to explain her tachycardia. Again, she tells me that she always has an elevated heart rate but she does not remember it being quite this high. It does appear to be a sinus tachycardia. Will allow her to go home per Cardiology recommendations. Have asked her to avoid all stimulants, Benadryl and antihistamines as well as any activity that greatly increases heart rate. Return to the emergency room as needed. Medical Records Medical records reviewed: Yes I reviewed the patient's medical records Lab Data Lab results reviewed: Yes I reviewed the patient's lab results Labs: Lab Results 10/17/23 10/17/23 10/17/23 Range/Units 14:54 15:10 15:25 WBC 6.87 (4.50-11.00) K/uL RBC 4.22 (4.00-5.20) m/uL Hgb 13.0 (12.0-16.0) gm/dL Hct 38.0 (33.0-51.0) % MCV 90 (80-100) fL MCH 31 (26-34) pg MCHC 34 (32-36) gm/dL RDW Coeff of Emma 11.5 (11.5-15.5) % Plt Count 300 (140-440) K/uL Neut % (Auto) 71.7 (42.0-72.0) % Lymph % (Auto) 18.8 L (20-44) % [place] % (Auto) 6.4 (0.0-11.0) % Eos % (Auto) 1.5 (0.0-7.0) % Baso % (Auto) 0.7 (0.0-3.0) % Neut # (Auto) 4.93 (1.7-7.0) K/uL Lymph # (Auto) 1.30 (0.90-2.90) K/uL [place] # (Auto) 0.40 (0.00-0.90) K/UL Eos # (Auto) 0.10 (0.00-0.50) K/uL Baso # (Auto) 0.05 (0.00-0.30) K/uL Abs Immat Gran (auto) 0.06 (0.00-0.30) K/uL Imm/Tot Granulo (auto) 0.9 % D-Dimer Quant (PE/DVT) 0.27 (0.00-0.50) ug/ml Sodium 133 L (135-149) mmol/L Potassium 3.8 (3.6-5.1) mmol/L Chloride 99 (96-114) mmol/L Carbon Dioxide 24 (20-32) mmol/L Anion Gap 10 (7-15) mEq/L BUN 16 (7-30) mg/dL Creatinine 0.7 (0.5-1.5) mg/dL Estimated Creat Clear 79.54 Estimated GFR 105 ml/min Glucose 103 (60-115) mg/dL Calcium 9.5 (8.4-10.6) mg/dL Magnesium 1.8 (1.5-2.6) mg/dL Total Bilirubin 0.5 (0.1-1.5) mg/dL AST 28 (12-35) U/L ALT 26 (4-35) U/L Alkaline Phosphatase 90 (40-150) U/L C-Reactive Protein 0.5 (0.5-1.0) mg/dL Total Protein 7.8 (6.0-8.3) g/dL Albumin 4.6 (3.3-5.0) g/dL TSH 5.240 H (0.270-4.20) uIU/mL SARS-CoV-2 (PCR) Negative SARS-CoV-2 (Negative) Influenza Type A (PCR) Negative PCR FLU A (Negative) Influenza Type B (PCR) Negative PCR FLU B (Negative) RSV (PCR) Negative PCR RSV (Negative) Lab Acknowledgement POC Troponin I 0.00 L (0.01-0.04) ng/ml 10/17/23 10/17/23 Range/Units 15:48 17:30 WBC (4.50-11.00) K/uL RBC (4.00-5.20) m/uL Hgb (12.0-16.0) gm/dL Hct (33.0-51.0) % MCV (80-100) fL MCH (26-34) pg MCHC (32-36) gm/dL RDW Coeff of Emma (11.5-15.5) % Plt Count (140-440) K/uL Neut % (Auto) (42.0-72.0) % Lymph % (Auto) (20-44) % [place] % (Auto) (0.0-11.0) % Eos % (Auto) (0.0-7.0) % Baso % (Auto) (0.0-3.0) % Neut # (Auto) (1.7-7.0) K/uL Lymph # (Auto) (0.90-2.90) K/uL [place] # (Auto) (0.00-0.90) K/UL Eos # (Auto) (0.00-0.50) K/uL Baso # (Auto) (0.00-0.30) K/uL Abs Immat Gran (auto) (0.00-0.30) K/uL Imm/Tot Granulo (auto) % D-Dimer Quant (PE/DVT) (0.00-0.50) ug/ml Sodium (135-149) mmol/L Potassium (3.6-5.1) mmol/L Chloride (96-114) mmol/L Carbon Dioxide (20-32) mmol/L Anion Gap (7-15) mEq/L BUN (7-30) mg/dL Creatinine (0.5-1.5) mg/dL Estimated Creat Clear Estimated GFR ml/min Glucose (60-115) mg/dL Calcium (8.4-10.6) mg/dL Magnesium (1.5-2.6) mg/dL Total Bilirubin (0.1-1.5) mg/dL AST (12-35) U/L ALT (4-35) U/L Alkaline Phosphatase (40-150) U/L C-Reactive Protein (0.5-1.0) mg/dL Total Protein (6.0-8.3) g/dL Albumin (3.3-5.0) g/dL TSH (0.270-4.20) uIU/mL SARS-CoV-2 (PCR) (Negative) Influenza Type A (PCR) (Negative) Influenza Type B (PCR) (Negative) RSV (PCR) (Negative) Lab Acknowledgement Test Added Test Added POC Troponin I (0.01-0.04) ng/ml Imaging Data Chest x-ray: Attestation: I have reviewed the pertinent imaging results. My impression: No aunt abnormalities noted by my read Radiologist's impression: Lungs are clear. Normal heart size and pulmonary vascularity. No pleural effusion. No pneumothorax. IMPRESSION: Normal chest. CT scan - chest: Attestation: I have reviewed the pertinent imaging results. My impression: I do not note any evidence of P Radiologist's impression: Motion degraded examination. Streak artifact from the dense opacified SVC limits evaluation of the adjacent structures. Lower neck: Visualized thyroid is unremarkable. Cardiovascular: Contrast opacification of the pulmonary arterial tree is adequate. Thoracic aorta is normal in caliber. Pulmonary artery is normal in caliber. No pulmonary embolus. No significant atherosclerotic calcifications. Heart size is normal. No right heart strain. No significant coronary arterial calcifications. Lungs: Linear bandlike opacifications of the lung bases likely due to subsegmental atelectasis and/or scarring. No focal consolidation Airways: Patent. Pleura: No pleural effusions or pneumothorax. Lymph nodes: No mediastinal, hilar, or axillary adenopathy. Chest wall: Normal. Upper abdomen: Cholecystectomy. No reflux of contrast into the IVC. Bones: No acute osseous abnormalities. IMPRESSION: No pulmonary embolus. No CT evidence of right heart strain. ECG Data Attestation: I personally reviewed and interpreted this ECG as follows: Interpretation: EKG shows sinus tachycardia at a rate of 118. Flattening of the T-waves noted in the lateral leads. Otherwise no acute ST or T-wave changes seen. Normal QT and VA intervals. Discharge Plan Discharge Clinical Impression: Tachycardia Patient Disposition: Home, Self-Care Condition: Improved Additional Instructions: 1. Increase fluid intake. Stay well hydrated. 2. Avoid Benadryl, cough medicines or any antihistamines tonight. Also avoid caffeine ever any stimulants. 3. Follow-up with Cardiology. Cardiology is suggesting an echocardiogram which is an ultrasound of your heart, another Holter monitor, and cardiac consultation. You will need to call your physician in order to have this arranged. Return to the emergency room for worsening symptoms and as needed. Prescriptions: No Action levothyroxine [Synthroid] 50 mcg tablet 50 mcg PO QDAY Qty: 90 3RF levothyroxine [Synthroid] 25 mcg tablet 25 mcg PO DAILY Qty: 90 2RF Follow Up/Referrals: Gerald Witt MD [Primary Care Provider] - Stand Alone Forms: [employer] Info Instructions
[2023-10-17 15:23] LABS: Basophils Absolute Auto 0.05 K/uL (0.00-0.30); Basophils Percent Auto 0.7 % (0.0-3.0); Eosinophils Percent Auto 1.5 % (0.0-7.0); Immature Granulocytes Abs Auto 0.06 K/uL (0.00-0.30); Immature Granulocytes Pct Auto 0.9 %; Lymphocytes Percent Auto 18.8 % (20-44); Mean Corpuscular HGB Conc 34 gm/dL (32-36); Mean Corpuscular Hemoglobin 31 pg (26-34); Mean Corpuscular Volume 90 fL (80-100); Monocytes Percent Auto 6.4 % (0.0-11.0); Neutrophils Absolute Auto 4.93 K/uL (1.7-7.0); Neutrophils Percent Auto 71.7 % (42.0-72.0); Platelet Count* 300 K/uL (140-440); RDW Coefficient of Variation % 11.5 % (11.5-15.5); Red Blood Count 4.22 m/uL (4.00-5.20); White Blood Count* 6.87 K/uL (4.50-11.00)
[2023-10-17] MEDS: CALCIUM CARBONATE 500 MG CHEW PO (15:34)
[2023-10-17] MEDS: OMEPRAZOLE 20 MG CAPSULE DR PO (15:34)
[2023-10-17 15:37] LABS: Albumin* 4.6 g/dL (3.3-5.0); Chloride* 99 mmol/L (96-114); Potassium* 3.8 mmol/L (3.6-5.1); Sodium* 133 mmol/L (135-149)
[2023-10-17 15:39] LABS: Creatinine* 0.7 mg/dL (0.5-1.5); Est. Creatinine Clearance* 79.54; Estimated Glomerular Filt Rate 105 ml/min
[2023-10-17 15:40] LABS: Alanine Aminotransferase* 26 U/L (4-35); Alkaline Phosphatase* 90 U/L (40-150); Anion Gap 10 mEq/L (7-15); Aspartate Amino Transferase* 28 U/L (12-35); Bilirubin Total* 0.5 mg/dL (0.1-1.5); Blood Urea Nitrogen* 16 mg/dL (7-30); Carbon Dioxide* 24 mmol/L (20-32); Glucose* 103 mg/dL (60-115); Total Protein* 7.8 g/dL (6.0-8.3)
[2023-10-17 15:41] LABS: Calcium* 9.5 mg/dL (8.4-10.6); Slide Review Reflex No
[2023-10-17 15:43] LABS: C Reactive Protein* 0.5 mg/dL (0.5-1.0)
[2023-10-17 15:53] LABS: D Dimer Quantitative* 0.27 ug/ml (0.00-0.50)
[2023-10-17] MEDS: METOPROLOL TARTRATE 1 MG/ML inj 5 MG IVP (16:14)
[2023-10-17] MEDS: 0.9 % SODIUM CHLORIDE 1000 ml 1,000 ML IV (16:14)
[2023-10-17 16:27] LABS: Magnesium* 1.8 mg/dL (1.5-2.6)
[2023-10-17 16:35] LABS: PCR FLU A Negative PCR FLU A (Negative); PCR FLU B Negative PCR FLU B (Negative); PCR RSV Negative PCR RSV (Negative)
[2023-10-17 16:36] LABS: SARS PCR* Negative SARS-CoV-2 (Negative)
--- NOTE | 2023-10-17 17:00 | CRLHL7_ITS ---
For Patients: As a result of the Century Cures Act, medical imaging exams and procedure reports are released immediately into your electronic medical record. You may view this report before your referring provider. If you have questions, please contact your health care provider. INDICATION: Tachycardia. TECHNIQUE: CT Pulmonary Angiogram examination was performed after the administration of 95 mL Isovue 370 contrast intravenously. COMPARISON: Same-day chest radiograph. FINDINGS: Motion degraded examination. Streak artifact from the dense opacified SVC limits evaluation of the adjacent structures. Lower neck: Visualized thyroid is unremarkable. Cardiovascular: Contrast opacification of the pulmonary arterial tree is adequate. Thoracic aorta is normal in caliber. Pulmonary artery is normal in caliber. No pulmonary embolus. No significant atherosclerotic calcifications. Heart size is normal. No right heart strain. No significant coronary arterial calcifications. Lungs: Linear bandlike opacifications of the lung bases likely due to subsegmental atelectasis and/or scarring. No focal consolidation Airways: Patent. Pleura: No pleural effusions or pneumothorax. Lymph nodes: No mediastinal, hilar, or axillary adenopathy. Chest wall: Normal. Upper abdomen: Cholecystectomy. No reflux of contrast into the IVC. Bones: No acute osseous abnormalities. IMPRESSION: No pulmonary embolus. No CT evidence of right heart strain. Please note that all CT scans at this facility use dose modulation, iterative reconstruction, and/or weight-based dosing when appropriate to reduce radiation dose to as low as reasonably achievable. Dictated by Dwayne Yeung MD @ 10/17/2023 5:51:17 PM (Electronically Signed)
== END 2023-10-17 19:04 | disposition home or self-care (01) ==
PROVIDERS: Emergency Provider Family Medicine; PCP Internal Medicine
DX: R00.0 Tachycardia, unspecified (principal)
CPT/HCPCS: 36415; 71045; 71275; 80053; 83735; 84443; 84484; 85025; 85379; 86140; 87631; 93005; 96361; 96374; 96375; 99284; 99285; A9270; J7030; Q9967

== ENCOUNTER 2024-09-08 06:01 | Emergency (ER) | payer OTHER, SELFPAY ==
[2024-09-08 06:10] VITALS: BP 178/106; PULSE 108; RESP 16; TEMP 36.9; O2SAT 98
--- NOTE | 2024-09-08 06:21 | ED.DIZZY ---
HPI - Dizziness General Chief Complaint: Dizziness/Vertigo Stated Complaint: dizzy Time Seen by Provider: 09/08/24 06:21 History of Present Illness HPI Narrative: Patient is a 49-year-old woman who presents with the sudden onset of dizziness this morning. She woke up feeling fine which turns her head the dizziness occurs. As long as she is stationary she has no symptoms. She is getting over a upper respiratory tract infection. She has had no numbness no tingling no weakness she is slightly nauseous but no vomiting. No other neurologic symptoms have been noted patient has otherwise been in her usual state of health. Related Data Previous Rx's ?Medication ?Instructions ?Recorded levothyroxine 25 mcg tablet 25 mcg PO DAILY #90 tabs 12/17/22 (Synthroid) levothyroxine 50 mcg tablet 50 mcg PO QDAY Hypothyroidism #90 02/18/24 (Synthroid) tabs Allergies Allergy/AdvReac Type Severity Reaction Status Date / Time peanut AdvReac Intermediate hives Uncoded 04/13/23 14:19 Review of Systems Status of ROS: Reports: 10 or more systems reviewed and unremarkable except as noted in History and below [facility] Medical History Hypothyroidism ?E03.9 - Hypothyroidism, unspecified (ICD-10) Social History Smoking Status: Never smoker Second hand tobacco smoke exposure: No How often do you have a drink containing alcohol: never How often do you have six or more drinks on one occasion: Never AUDIT-C Alcohol total score: 0 Non-prescribed substance use: denies use Exam Narrative: Exam Narrative: EXAM GENERAL: Patient appears comfortable and well. EYES: No scleral icterus. ENT: Tympanic membranes and oropharynx normal. THYROID: no thyroid nodules or thyromegaly. LYMPH: No supraclavicular or cervical lymphadenopathy. SKIN: Visible skin seen during exam normal or with benign process only. EXT: No dependent lower extremity pedal edema. HEART: Regular rate and rhythm with no murmurs, rubs, or gallops. LUNGS: Clear to auscultation bilaterally with no crackles or wheezes. ABD: Soft, non tender, non distended. PSYCH: Good eye contact, speech is not pressured. Neurologic cranial nerves 2-12 grossly intact no focal defects. Const: Vital Signs, click to edit/add: Vital Signs - 24 hr 09/08/24 06:10 Temperature 98.5 F Pulse Rate [Pulse Oximeter] 108 H Respiratory Rate 16 Blood Pressure [Ri ght Upper Arm] 178/106 H Pulse Oximetry 98 Oxygen Delivery Me thod Room Air Course Course ED Course: Patient seen and examined. Vital Signs Vital signs: Initial Vital Signs Temperature 98.5 F 09/08/24 06:10 Temperature Source Temporal Artery Scan 09/08/24 06:10 Pulse Rate 108 H 09/08/24 06:10 Respiratory Rate 16 09/08/24 06:10 Blood Pressure 178/106 H 09/08/24 06:10 Blood Pressure Mean 130 H 09/08/24 06:10 Blood Pressure Position Sitting 09/08/24 06:10 Pulse Oximetry 98 09/08/24 06:10 Oxygen Delivery Method Room Air 09/08/24 06:10 Vital Signs Temperature 98.5 F 09/08/24 06:10 Pulse Rate 108 H 09/08/24 06:10 Respiratory Rate 16 09/08/24 06:10 Blood Pressure 178/106 H 09/08/24 06:10 Pulse Oximetry 98 09/08/24 06:10 Oxygen Delivery Method Room Air 09/08/24 06:10 Temperature 98.5 F 09/08/24 06:10 Pulse Rate 108 H 09/08/24 06:10 Respiratory Rate 16 09/08/24 06:10 Blood Pressure 178/106 H 09/08/24 06:10 Pulse Oximetry 98 09/08/24 06:10 Oxygen Delivery Method Room Air 09/08/24 06:10 MDM - Dizziness MDM Narrative Medical decision making narrative: Patient presents with sudden onset of dizziness occurred this morning. The dizziness is reversible with head movement. She has no neurologic symptoms. She has no previous history of similar symptoms. Her symptoms are most consistent with benign positional vertigo. Differential diagnosis would include but not limited to BPPV [place] Max syndrome cerebrovascular accident TIA encephalitis upper respiratory infection. At this time I did instruct her on the Dannie maneuver and recommended good hydration follow-up as needed. Discharge Plan Discharge Clinical Impression: Vertigo Patient Disposition: Home, Self-Care Condition: Stable Instructions: Benign Paroxysmal Positional Vertigo (ED) Additional Instructions: Exercises as directed Hydration Follow-up with your doctor as needed. Activity Level: No Restrictions Discharge Diet: Regular Prescriptions: No Action levothyroxine [Synthroid] 25 mcg tablet 25 mcg PO DAILY Qty: 90 2RF levothyroxine [Synthroid] 50 mcg tablet 50 mcg PO QDAY Qty: 90 3RF Follow Up/Referrals: Gerald Witt MD [Primary Care Provider] - Stand Alone Forms: my[employer] Info Instructions
--- OUTSIDE RECORDS SUMMARY | 2024-09-08 06:33 | XMS_ITS | Clinical Summary ---
Author Organization [facility] Address [address] [place] [address] Care Team Providers Care Loom Operator Apprentice Name Role Phone Lisa Bolivar PA-C Primary Care Provider + [phone] Source Comments You are receiving this document as you are listed as the primary care provider,follow-up provider, or the patient has been referred to you for consultation.This is in compliance with the Medicare and[facility] EHR Incentive Program,which states Providers who transition their patient to another setting of careor provider of care or refers their patient to another provider of care shouldprovide summary care record for each transition of care or referral. [employer] Allergies No known active allergies Medications Medication Sig Dispensed Refills Start Date End Date Status UNKNOWN MEDICATION 03/10/2011 Active UNKNOWN MEDICATION LW Comment:synthroid 0.15mg LW Addl Instr:Patient needs to be seen. 1 03/09/2008 Active levothyroxine (AKA SYNTHROID) 137 MCG tablet Take 1 tablet by mouth daily (every 24 hours). 30 tablet 1 07/07/2011 Active Active Problems Problem Noted Date Diagnosed Date Single liveborn, born in [facility], delivered by delivery 05/29/2005 Overview (06/16/2017): Single C Section Allergic rhinitis 05/29/2005 Overview (06/16/2017): Allergy Seasonal Varicella 05/29/2005 Overview (06/16/2017): LW Onset: childhood ; Varicella Zoster Hypothyroidism 02/09/2004 Overview (06/16/2017): LW Onset: [id number] ; Hypothyroidism Primary Resolved Problems Problem Noted Date Diagnosed Date Resolved Date Anxiety state 12/25/2003 05/29/2005 Overview (06/16/2017): Anxiety NOS Immunizations Name Administration Dates Next Due Td 05/29/2005,10/25/1989 Social History Tobacco Use Types Packs/Day Years Used Date Smoking Tobacco: Never Sex and Gender Information Value Date Recorded Sex Assigned at Not on file Gender Identity Not on file Sexual Orientation Not on file Last Filed Vital Signs Vital Sign Reading Time Taken Comments Blood Pressure 110/87 08/16/2023 10:20 AM CDT Pulse 106 08/16/2023 10:20 AM CDT Temperature 36.6 ??C (97.9 ??F) 08/16/2023 1 0:20 AM CDT Respiratory Rate 18 08/16/2023 10:2 0 AM CDT Oxygen Saturation 100% 08/16/2023 10: 20 AM CDT Inhaled Oxygen Concentration - - Weight 88.3 kg (194 lb 9.3 oz) 07/16/20 08 3:57 PM CDT C: 88.3kg Height 159.4 cm (5' 2.75) 05/29/2005 1 :11 PM CDT C: 159.4cm Body Mass Index 34.75 05/29/2005 1:11 PM CDT Plan of Treatment Health Maintenance Due Date Last Done Comments Colon Cancer Screening Plan Due 1973 Hep C Screening (Preventive Services) 1973 Mammogram 1973 HIV Screening (Preventive Services) 1989 Adult Preventive Visit 1991 HepB (1) 1992 Cervical Cancer Screening Due 05/30/2005 05/29/2005, 11/21/2004, 06/06/2003, Additional history exists DTaP/Tdap/Td (2 - Tdap) 05/30/2005 05/29/2005, 10/25 Cholesterol 2018 06/02/2005, 06/06/2003 Zoster/Shingles (1 of 2) 2023 COVID-19 Vaccine ( season) 2024 08/11/2021, 06/30/2021 Influenza (#1) 2024 HepA Aged Out No longer eligi ble based on patient's age to complete this topic Hib Aged Out No longer eligi ble based on patient's age to complete this topic IPV (Polio) Aged Out No longer eligi ble based on patient's age to complete this topic RSV Aged Out No longer eligi ble based on patient's age to complete this topic MCV4 Aged Out No longer eligi ble based on patient's age to complete this topic Pneumococcal Aged Out No longer eligi ble based on patient's age to complete this topic Procedures Procedure Name Priority Date/Time Associated Diagnosis Comments LIPID PANEL & DIRECT LDL (IF NEEDED) Routine 06/02/2005 10:39 AM CDT ANATOMICAL PATH LIQUID BASED Routine 05/29/2005 8:10 AM CDT from Last 3 Months or Most Recently Relevant to Health Maintenance Results * Lipid Panel and Direct LDL(If Needed) (06/02/2005 10:39 AM CDT) Cholesterol/HDL Ratio Screen 4.0 No normal range HP CONVERSION Cholesterol 194 <200 mg/dL HP CONVERSION HDL Cholesterol 48 40 - 60 mg/dL HP CONVERSION Triglycerides 91 0 - 149 mg/dL HP CONVERSION LDL Calculated 128 0 - 130 mg/dL HP CONVERSION Comment: Desirable: <130 mg/dL (<100 if diabetes or coronary heart disease) 06/02/2005 10:3 9 AM CDT Mercedes Nguyen PA-C LAB_1 HP CONVERSION * Pap Smear (05/29/2005 8:10 AM CDT) PAP Smear Liquid Based SEE TEXT No normal range HP CONVERSION Comment: Patient: LISA TOSCANO ? CERVICAL CYTOLOGY REPORT Pathology # ??[id number] ?Date Obtained: ? Date Received: CYTOLOGIC IMPRESSION: Negative for intraepithelial lesion or malignancy. ? ADDITIONAL DATA LMP: ?05-11-05 CLINICAL HIST LIQUID BASED PAP CERVICAL SPECIMEN ADEQUACY: ?? Satisfactory. ENDOCERVICAL CELLS: ??Present. Verified 06/07/05 by: ??MB ? (electronic signature) 05/29/2005 8:10 AM CDT Mercedes Nguyen PA-C LAB_1 HP CONVERSION from Last 3 Months or Most Recently Relevant to Health Maintenance Care Teams Loom Operator Apprentice Relationship Specialty Start Date End Date Lisa Bolivar PA-C [address] [place] [address] PCP - General Physician Wire Roller 03/09/22
--- OUTSIDE RECORDS SUMMARY | 2024-09-08 06:33 | XMS_ITS | Referral Summary ---
Author Organization [place] [facility] Address [address] [place] [address] Care Team Providers Care Laboratory Cureman Name Role Phone [facility] Primary Care Provider Allergies No known active allergies Social History Tobacco Use Types Packs/Day Years Used Date Smoking Tobacco: Never Assessed Adolescent Education Answer Date Record ed Getting School Help Needed Not on file 11/20 Comments No Sex and Gender Information Value Date Recorded Sex Assigned at Not on file Legal Sex Female 3:19 AM RESPIRATORY MANAGER Gender Identity Not on file Sexual Orientation Not on file Last Filed Vital Signs Vital Sign Reading Time Taken Comments Blood Pressure 119/74 11/20/2023 9:00 PM RESPIRATORY MANAGER Pulse 111 11/20/2023 9:00 PM RESPIRATORY MANAGER Temperature 36.6 ??C (97.8 ??F) 11/20/2023 9:51 PM CS T Respiratory Rate 21 11/20/2023 9:00 PM RESPIRATORY MANAGER Oxygen Saturation 94% 11/20/2023 9:00 PM RESPIRATORY MANAGER Inhaled Oxygen Concentration - - Weight - - Height - - Body Mass Index - - Plan of Treatment Not on file Procedures Procedure Name Priority Date/Time Associated Diagnosis Comments BASIC METABOLIC PANEL STAT 11/20/2023 7:01 PM RESPIRATORY MANAGER from Last 3 Months or Most Recently Relevant to Health Maintenance Results * (ABNORMAL) Basic metabolic panel (11/20/2023 7:01 PM RESPIRATORY MANAGER) Sodium 136 135 - 145 mmol/L 11/20/2023 8:17 PM RESPIRATORY MANAGER [facility] Comment:Reference intervals for this test were updated on 07/20/2023 to more accurately reflect our healthy population. There may be differences in the flagging of prior results with similar values performed with this method. Interpretation of those prior results can be made in the context of the updated reference intervals. Potassium 3.5 3.4 - 5.3 mmol/L 11/20/2023 8:17 PM [facility] Chloride 98 98 - 107 mmol/L 11/20/2023 8:17 PM [facility] Carbon Dioxide (CO2) 21(L) 22 - 29 mmol/L 11/20/2023 8:17 PM [facility] Anion Gap 17(H) 7 - 15 mmol/L 11/20/2023 8:17 PM [facility] Urea Nitrogen 13.6 6.0 - 20.0 mg/dL 11/20/2023 8:17 PM [facility] Creatinine 0.66 0.51 - 0.95 mg/dL 11/20/2023 8:17 PM [facility] GFR Estimate >90 >60 mL/min/1. 73m2 11/20/2023 8:17 PM [facility] Calcium 10.3(H) 8.6 - 10.0 mg/dL 11/20/2023 8:17 PM [facility] Glucose 160(H) 70 - 99 mg/dL 11/20/2023 8:17 PM [facility] Blood BLOOD SPECIMEN / Unknown Venipuncture / Unknown 11/20/2023 7:01 PM RESPIRATORY MANAGER 11/20/2023 7:08 PM [facility] us Edwin Jenkins MD LAB - BLOOD ORDERABLES F inal Result LABORATORY [facility] [address] Lab (1st floor, no room number) [place] [address], [facility] [phone] from Last 3 Months or Most Recently Relevant to Health Maintenance Insurance [employer] [place] [address] [facility] Care Teams Laboratory Cureman Relationship Specialty Start Date End Date [address] [address] PCP - General 11/20/23
--- OUTSIDE RECORDS SUMMARY | 2024-09-08 06:33 | XMS_ITS | Clinical Summary ---
Author Organization [facility] Address [place], [place] [address] Care Team Providers Care Fraud Analyst Name Role Phone Unavailable Primary Care Provider Unavailabl e Social History Tobacco Use Types Packs/Day Years Used Date Smoking Tobacco: Never Assessed Sex and Gender Information Value Date Recorded Sex Assigned at Not on file Gender Identity Not on file Sexual Orientation Not on file Plan of Treatment Health Maintenance Due Date Last Done Comments Tdap 1984 Depression screening for age 12+ 1985 HIV for age 15-65 1988 BMI (ht and wt on same day) for age 18+ 1991 Hepatitis C screening for ag e 18-79 1991 Tetanus booster 1993 Pap test for age 21-65 1994 Colonoscopy through age 75 2018 Lipids for age 45-75 2018 Mammogram for age 45-75 2018 Zoster (shingles) series for age 50+ (1 of 2) 2023 COVID-19 vaccine series (2023- season) 2024 Influenza for age 50-64 06/25/2024 Pneumococcal series for age 6-64 Aged Out No longer eligible based on patient's age to complete this topic
--- OUTSIDE RECORDS SUMMARY | 2024-09-08 06:33 | XMS_ITS | Clinical Summary ---
Author Organization [facility] Address [address] [place] [address] Care Team Providers Care Carpenter Assistant Name Role Phone [facility] Primary Care Provider Allergies No known active allergies Social History Tobacco Use Types Packs/Day Years Used Date Smoking Tobacco: Never Assessed Adolescent Education Answer Date Record ed Getting School Help Needed Not on file 11/20 Comments No Sex and Gender Information Value Date Recorded Sex Assigned at Not on file Legal Sex Female 3:19 AM HVAC MANAGER Gender Identity Not on file Sexual Orientation Not on file Last Filed Vital Signs Vital Sign Reading Time Taken Comments Blood Pressure 119/74 11/20/2023 9:00 PM HVAC MANAGER Pulse 111 11/20/2023 9:00 PM HVAC MANAGER Temperature 36.6 ??C (97.8 ??F) 11/20/2023 9:51 PM CS T Respiratory Rate 21 11/20/2023 9:00 PM HVAC MANAGER Oxygen Saturation 94% 11/20/2023 9:00 PM HVAC MANAGER Inhaled Oxygen Concentration - - Weight - - Height - - Body Mass Index - - Plan of Treatment Health Maintenance Due Date Last Done Comments ADVANCE CARE PLANNING 1973 ANNUAL REVIEW OF HM ORDERS 1973 CT COLONOGRAPHY 1973 FIT 1973 FLEX SIG 1973 MAMMO SCREENING 1973 YEARLY PREVENTIVE VISIT 1973 sDNA (Cologuard) 1973 COLONOSCOPY 1983 COLORECTAL CANCER SCREENING 1983 HIV SCREENING 1988 HEPATITIS C SCREENING 1991 HEPATITIS B IMMUNIZATION (1 of 3 - 19+ 3-dose series) 1992 PAP 1994 DTAP/TDAP/TD IMMUNIZATION (2 - Tdap) 05/30/2005 05/29/2005, 10/25/1989 LIPID 2013 ZOSTER IMMUNIZATION (1 of 2) 2023 PHQ-2 (once per calendar year) 2023 COVID-19 Vaccine (3 - 2023-2 5 season) 2024 08/11/2021, 06/30/2021 INFLUENZA VACCINE (#1) 2024 GLUCOSE 11/20/2026 11/20/2023 RSV VACCINE (1 - 1-dose 75+ series) 2048 HPV IMMUNIZATION Aged Out No longer e ligible based on patient's age to complete this topic MENINGITIS IMMUNIZATION Aged Out No l onger eligible based on patient's age to complete this topic Pneumococcal Vaccine: Pediatrics (0 to 5 Years) and At-Risk Patients (6 to 64 Years) Aged Out No longer eligible b ased on patient's age to complete this topic RSV MONOCLONAL ANTIBODY Aged Out No l onger eligible based on patient's age to complete this topic Procedures Procedure Name Priority Date/Time Associated Diagnosis Comments BASIC METABOLIC PANEL STAT 11/20/2023 7:01 PM HVAC MANAGER from Last 3 Months or Most Recently Relevant to Health Maintenance Results * (ABNORMAL) Basic metabolic panel (11/20/2023 7:01 PM HVAC MANAGER) Sodium 136 135 - 145 mmol/L 11/20/2023 8:17 PM HVAC MANAGER [facility] Comment:Reference intervals for this test were updated on 07/20/2023 to more accurately reflect our healthy population. There may be differences in the flagging of prior results with similar values performed with this method. Interpretation of those prior results can be made in the context of the updated reference intervals. Potassium 3.5 3.4 - 5.3 mmol/L 11/20/2023 8:17 PM HVAC MANAGER [facility] Chloride 98 98 - 107 mmol/L 11/20/2023 8:17 PM HVAC MANAGER [facility] Carbon Dioxide (CO2) 21(L) 22 - 29 mmol/L 11/20/2023 8:17 PM HVAC MANAGER [facility] Anion Gap 17(H) 7 - 15 mmol/L 11/20/2023 8:17 PM HVAC MANAGER [facility] Urea Nitrogen 13.6 6.0 - 20.0 mg/dL 11/20/2023 8:17 PM HVAC MANAGER LABORATORY Creatinine 0.66 0.51 - 0.95 mg/dL 11/20/2023 8:17 PM HVAC MANAGER LABORATORY GFR Estimate >90 >60 mL/min/1. 73m2 11/20/2023 8:17 PM HVAC MANAGER LABORATORY Calcium 10.3(H) 8.6 - 10.0 mg/dL 11/20/2023 8:17 PM HVAC MANAGER LABORATORY Glucose 160(H) 70 - 99 mg/dL 11/20/2023 8:17 PM HVAC MANAGER LABORATORY Blood BLOOD SPECIMEN / Unknown Venipuncture / Unknown 11/20/2023 7:01 PM HVAC MANAGER 11/20/2023 7:08 PM HVAC MANAGER us Edwin Jenkins MD LAB - BLOOD ORDERABLES F inal Result LABORATORY [facility] [address] Lab (1st floor, no room number) [place] [address] [phone] from Last 3 Months or Most Recently Relevant to Health Maintenance Insurance [facility] [employer] [facility] COMMERCIAL Care Teams Carpenter Assistant Relationship Specialty Start Date End Date [address] [address] PCP - General 11/20/23
--- OUTSIDE RECORDS SUMMARY | 2024-09-08 06:34 | XMS_ITS | Encounter Summary ---
Author Organization [facility] [place] [facility] Address [address], [place] [address] Care Team Providers Care Transfer Operator Name Role Phone Lisa Bolivar PA-C Primary Care Provider + [phone] Encounter Details Date Type Department Care Team (Late st Contact Info) Description 02/10/[address] [facility] Stephanie Haynes MD Social History Tobacco Use Types Packs/Day Years Used Date Smoking Tobacco: Never Assessed Sex and Gender Information Value Date Recorded Sex Assigned at Not on file Gender Identity Not on file Sexual Orientation Not on file documented as of this encounter Plan of Treatment Not on file documented as of this encounter Visit Diagnoses Not on filedocumented in this encounter Care Teams Transfer Operator Relationship Specialty Start Date End Date Lisa Bolivar PA-C [address] [place] [address] PCP - General Physician Veneer Cutter 03/09/22 documented as of this encounter
--- OUTSIDE RECORDS SUMMARY | 2024-09-08 06:34 | XMS_ITS | Encounter Summary ---
Author Organization [facility] Address [address] [place] [address] Care Team Providers Care Lining Stamper Name Role Phone Lisa Bolivar PA-C Primary Care Provider [phone] Encounter Details Date Type Department Care Team (Latest Contact Info) Description 12/23/1994 [place] [address] [place] [address] Social History Tobacco Use Types Packs/Day Years Used Date Smoking Tobacco: Never Assessed Sex and Gender Information Value Date Recorded Sex Assigned at Not on file Gender Identity Not on file Sexual Orientation Not on file documented as of this encounter Plan of Treatment Not on file documented as of this encounter Visit Diagnoses Not on filedocumented in this encounter Care Teams Lining Stamper Relationship Specialty Start Date End Date Lisa Bolivar PA-C [address] [place] [address] PCP - General Physician Rail Tractor Operator 03/09/22 documented as of this encounter
--- OUTSIDE RECORDS SUMMARY | 2024-09-08 06:34 | XMS_ITS | Encounter Summary ---
Author [facility] Address [address] [place] [address] Care Team Providers Care Section Crews Activities Clerk Name Role Phone Lisa Bolivar PA-C Primary Care Provider + [phone] Encounter Details Date Type Department Care Team (Late st Contact Info) Description 05/08/2024 jose Alan [phone] Social History Tobacco Use Types Packs/Day Years Used Date Smoking Tobacco: Never Sex and Gender Information Value Date Recorded Sex Assigned at Not on file Gender Identity Not on file Sexual Orientation Not on file documented as of this encounter Progress Notes * FAMILY MEDICINEJOSE PROVIDER - 05/17/2024 3:49 PM CDT Jose Addendum Treatment Plan Diagnosis Sinusitis with Ear Pain Visit Date May 08, 2024 Addendum Date May 17, 2024 Lisa Howell Date of : 71 Provider Kathrine Shepard, Nurse Practitioner Note From Provider Jasbir Gonzalez,Thank you for talking with me today! I?? sorry to hear that you are not feeling well. I??e sent a prescription for another antibiotic to your pharmacy. Please read through the treatment plan I??e put together for you below for additional instructions. If you have any questions or concerns, please submit a Follow Up Request at any time. Feel better soon!Take care, ABRAHAN Parra Treatment Plan Since you have a bacterial infection, let?? try an antibiotic. I sent a prescription to [facility]. This antibiotic will work effectively on both your sinus and ear symptoms. I??e also listed a fewself-care tips to reduce inflammation and soothe your symptoms while the antibiotic kills the bacteria. If your symptoms don?? improve after 4 days, or if you have questions, please select Help to Request a Follow-up and we??l adjust your treatment for free. Order(s) amoxicillin 500 mg capsule Take 2 capsule by mouth three times a day as directed for 7 days Note: $patientNotes Refills: None terconazole 0.4% cream Insert 1 applicatorful into vagina every night at bedtime as directed for 7 days Note: $patientNotes Refills: None amoxicillin-pot clavulanate 875-125 mg tablet Take 1 tablet oral twice a day for 7 days Note: $patientNotes Refills: None Sent To: [facility] [place] [address] Treatment Plan Self Care Tip Topics Ease Sinus Inflammation and Ear Pain with Nasal Steroids What to Expect Our goal is to treat the infection and reduce inflammation in order to promote drainage to ease your sinus and ear pain. Reducing inflammation will make you feel better quickly. If you follow the recommendations I made in the Treatment section, your symptoms should begin to improve in 4 days of following this treatment plan. If your symptoms haven?? improved after 4 days, select Help to Request aFollow-up and we??l discuss next steps. What to Watch Out For Give us a call immediately if you experience: ??? Vision changes ??? Redness and swelling of the eyes or face ??? Increasing congestion ??? Worsening pain ??? High fevers ??? Persistent or worsening ear pain ??? Bloody or foul-smelling ear drainage ??? Skull pain behind your ear ??? Hearing loss ??? Difficulty swallowing My Conditions, Orders, Allergies as of May 17, 2024 Standard condition list hypothyroidism vitamin D deficiency Current orders amoxicillin-pot clavulanate (amoxicillin-pot clavulanate) fluticasone propionate (fluticasone propionate) Synthroid (levothyroxine) Allergies None [employer] Information [employer] [facility] [employer] We are an online clinic open 17/05. If you have any questions or comments about this visit, please call or email [email or web address] * FAMILY MEDICINE, JOSE PROVIDER - 05/08/2024 11:48 AM CDT Jose Treatment Plan Diagnosis Ear Infection Visit Date May 08, 2024 Lisa Howell Date of : 71 Provider María Wilson, Nurse Practitioner Note From Provider Jasbir Gonzalez, Thanks for using [facility]. See the attached plan. Hope you feel better soon, Pema Treatment Plan To help reduce your ear pain, I recommend a combination of kvqb-ups-fnjubsf pain medications. Follow the specificinstructions below in Your Pain Relief Strategy and your pain should improve within 24hours.Ear infections usually clear up on their own without antibiotics but, given your history, I also included an antibioticto use if needed. If your pain doesn't improve or worsens while following this plan, start taking your antibiotic.I also prescribed an antifungal medication in case you develop a yeast infection.I sent your prescriptions to [facility], which you can strip picker if needed. Also, it?? normal to experience earsymptoms such as popping, fullness or pressure for several weeks while the fluid slowly drains from your ear.If your ear pain hasn't improved in 3 days, or if you have questions, select Help to Requesta Follow-up and we'll discuss next steps. Order(s) amoxicillin 500 mg capsule Take 2 capsule by mouth three times a day as directed for 7 days Note: $patientNotes Refills: None terconazole 0.4% cream Insert 1 applicatorful into vagina every night at bedtime as directed for 7 days Note: $patientNotes Refills: None Sent To: [facility] [place] [address] Treatment Plan Self Care Tip Topics When to Use Your Antibiotic Your Pain Relief Strategy - Ibuprofen with Supportive Acetaminophen Relieve Facial Pressure with Nasal Steroids How to Use Your Nasal Steroids Yeast Infection Prescription What to Expect The right combination and dose of vagk-asa-gehfxgi medications can safely and effectively reduce ear infection symptoms.If you follow the recommendations I made on the Treatment tab, your ear pain should be gone within 3 days. You may experienceear symptoms such as popping, fullness or pressure forseveral weeks while the fluid drains from your ear. If yourear pain isn?? gone within 3 days, or ifyou have questions, select Help to Request a Follow-up andwe'll discuss next steps. What to Watch Out For Give us a call if you experience: ??? Increasing congestion ??? Pain and pressure in the face ??? New headache ??? Difficulty swallowing or worsening sore throat ??? Stiff neck If you develop any of the following symptoms, you need to be seen in-person at a clinic or urgent care within 24 hours. ??? Sudden or complete hearing loss ??? Bloody ear drainage ??? Pain or tenderness when pushing on the bony part of the skull behind your ear ??? Fever that doesn't improve within 2 hours of taking fever-reducing medications ??? Severe ear pain that suddenly stops followed by ear drainage ??? Loss of balance ??? Double vision My Conditions, Orders, Allergies as of May 08, 2024 Standard condition list hypothyroidism vitamin D deficiency Current orders terconazole (terconazole) amoxicillin (amoxicillin) fluticasone propionate (fluticasone propionate) Synthroid (levothyroxine) Allergies None [employer] Information [employer] We are an online clinic open 17/05. If you have any questions or comments about this visit, please call or email [email or web address]. documented in this encounter Plan of Treatment Not on file documented as of this encounter Visit Diagnoses Diagnosis Otitis media, unspecified, unspecified ear Acute sinusitis, unspecified documented in this encounter Care Teams Section Crews Activities Clerk Relationship Specialty Start Date End Date Lisa Bolivar PA-C [address] [place] [address] PCP - General Physician Aperture Mask Etcher 03/09/22 documented as of this encounter
== END 2024-09-08 06:34 | disposition home or self-care (01) ==
LOC: ED 06:32
PROVIDERS: Emergency Provider Internal Medicine; PCP Internal Medicine
DX: R42 Dizziness and giddiness (principal)
CPT/HCPCS: 99283

== ENCOUNTER 2025-07-06 11:45 | Outpatient (CLI) | payer OTHER, SELFPAY | END 2025-07-06 11:46 | disposition home or self-care (01) | LOC: NFLDREF 07-11 18:13 | PROVIDERS: PCP Internal Medicine; Referring Provider Internal Medicine; Visit Provider Internal Medicine | DX: E03.9 Hypothyroidism, unspecified (principal) | CPT/HCPCS: 84443 ==